=== PATIENT | male | born 1975 | race Caucasian/White ===

== ENCOUNTER 2020-03-18 10:15 | Emergency (ER) | payer MEDICAID ==
[~2020-03-18] VITALS: Ht 177.8 cm; Wt 77.1 kg
[2020-03-18 10:15] VITALS: BP_SYST 135
[2020-03-18 11:22] LABS: BASOPHILS % (AUTO) 0.1 % (0.0-2.0); EOSINOPHILS # (AUTO) 0.1 K/uL (0.0-0.4); EOSINOPHILS % (AUTO) 0.6 % (0.0-4.0); HEMATOCRIT 44.5 % (36-54); HEMOGLOBIN 14.8 g/dL (14.0-18.0); LYMPHOCYTES # (AUTO) 1.6 K/uL (1.0-5.5); MEAN CORPUSCULAR HEMOGLOBIN 31 pg (27-31); MEAN CORPUSCULAR HGB CONC 33 % (32-36); MEAN CORPUSCULAR VOLUME 93 fL (79.0-98.0); MONOCYTES # (AUTO) 0.8 K/uL (0.0-1.0); NEUTROPHILS # (AUTO) 7.4 K/uL (1.8-7.7); NEUTROPHILS % (AUTO) 75.3 % (40.0-70.0); PLATELET COUNT (AUTO) 107 K/uL (130-430); RED BLOOD CELL COUNT(AUTO) 4.79 MIL/uL (4.2-6.2); RED CELL DISTRIBUTION WIDTH 19.4 % (9.0-15.0); WHITE BLOOD COUNT (AUTO) 9.8 K/uL (4.8-10.8)
[2020-03-18 11:29] LABS: POTASSIUM 3.4 mmol/L (3.5-5.1)
[2020-03-18 11:40] LABS: ALBUMIN 3.7 g/dL (3.4-4.8); CALCIUM 8.8 mg/dL (8.4-11.0); CREATININE 0.74 mg/dL (0.55-1.30); FREE T4 (FREE THYROXINE) 0.9 ng/dl (0.8-1.5); INR 0.9 (0.80-1.20); PROTHROMBIN TIME 9.4 SECS (9.5-12.5); TOTAL BILIRUBIN 0.5 mg/dL (0.0-1.0)
[2020-03-18] MEDS ORDERED: NACL 0.9% 2,000 ML IV ONE (11:45)
[2020-03-18 12:39] LABS: BILIRUBIN,URINE NEGATIVE (NEGATIVE); BLOOD, URINE NEGATIVE (NEGATIVE); CLARITY/URINE CLEAR (CLEAR); COLOR,URINE YELLOW (YELLOW); GLUCOSE,URINE NEGATIVE (NEGATIVE); KETONES,URINE 2+ (NEGATIVE); LEUKOCYTE ESTERASE ,URINE TRACE (NEGATIVE); NITRITE, URINE NEGATIVE (NEGATIVE); PH,URINE 6.5 (5.0-8.0); PROTEIN URINE 1+ (NEGATIVE)
[2020-03-18 12:54] LABS: RBC,URINE 0-3 /HPF (0-3)
[2020-03-18 12:55] LABS: BACTERIA,URINE None Seen /HPF (None Seen)
[2020-03-18 12:59] LABS: BARBITURATE, URINE NEGATIVE (NEG <=200); BENZODIAZEPINE, URINE POSITIVE (NEG <=150); CANNABINOID, URINE NEGATIVE (NEG <=50); COCAINE, URINE NEGATIVE (NEG <=150); METHAMPHETAMINES SCREEN,URINE NEGATIVE (NEG <=500); OPIATE, URINE NEGATIVE (NEG <=100); PHENCYCLIDINE SCREEN,URINE NEGATIVE (NEG <=25); UR TRICYCLIC ANTIDEPRESSANTS NEGATIVE (NEG <=300); URINE AMPHETAMINE NEGATIVE (NEG <=500); URINE METHADONE NEGATIVE (NEG <=200); URINE OXYCODONE SCREEN NEGATIVE (NEG <=100); URINE PROPOXYPHENE SCREEN NEGATIVE (NEG <=300)
[2020-03-18 16:52] VITALS: BP_SYST 142
== END 2020-03-18 16:52 | disposition home or self-care (01) ==
LOC: SED 10:15
DX: F10.129 Alcohol abuse with intoxication, unspecified (principal); Y90.8 Blood alcohol level of 240 mg/100 ml or more
CPT/HCPCS: 36415; 80053; 80307; 81000; 82140; 83605; 83880; 84439; 84484; 85025; 85610; 87040; 93005; 96360; 96361; 99284; G0482; J7030

== ENCOUNTER 2021-11-22 21:14 | Inpatient (IN) | payer OTHER, MEDICAID ==
[~2021-11-22] VITALS: Ht 177.8 cm; Wt 74.8 kg
[2021-11-22 21:18] VITALS: BP_SYST 132
[2021-11-22] MEDS ORDERED: cloNIDine HCL 0.1 MG TABLET PO ONE (22:00)
[2021-11-22] MEDS ORDERED: NOR10 PO (22:04)
[2021-11-22] MEDS ORDERED: LOSA25TA3 PO (22:05)
[2021-11-22] MEDS ORDERED: NITROGLYCERIN 0.4 MG TAB.SUBL SL ONE (22:15)
[2021-11-22] MEDS ORDERED: ASPIRIN 325 MG TABLET (ECOTRIN) PO ONE (22:15)
[2021-11-22 22:23] LABS: ANION GAP 15 (5-15); CALCIUM 10.1 mg/dL (8.4-11.0); CHLORIDE 97 mmol/L (98-107); CREATININE 0.78 mg/dL (0.55-1.30); GLUCOSE 87 mg/dL (70-99); POTASSIUM 3.4 mmol/L (3.5-5.1); SODIUM SERUM 135 mmol/L (136-145); UREA NITROGEN, BLOOD 10 mg/dL (8-21)
[2021-11-22 22:25] LABS: BASOPHILS % (AUTO) 0.4 % (0.0-2.0); EOSINOPHILS % (AUTO) 0.3 % (0.0-4.0); HEMATOCRIT 39.9 % (36-54); HEMOGLOBIN 13.6 g/dL (14.0-18.0); LYMPHOCYTES # (AUTO) 0.8 K/uL (1.0-5.5); LYMPHOCYTES % (AUTO) 19.6 % (20.5-51.5); MEAN CORPUSCULAR HEMOGLOBIN 35 pg (27-31); MEAN CORPUSCULAR HGB CONC 34 % (32-36); MEAN CORPUSCULAR VOLUME 103 fL (79.0-98.0); MONOCYTES # (AUTO) 0.4 K/uL (0.0-1.0); MONOCYTES % (AUTO) 8.9 % (1.7-9.3); NEUTROPHILS % (AUTO) 70.8 % (40.0-70.0); PLATELET COUNT (AUTO) 124 K/uL (130-430); RED BLOOD CELL COUNT(AUTO) 3.87 MIL/uL (4.2-6.2); WHITE BLOOD COUNT (AUTO) 4.3 K/uL (4.8-10.8)
[2021-11-22] MEDS ORDERED: chlordiazePOXIDE HCL 25 MG CAPSULE PO ONE (22:30)
[2021-11-22] MEDS ORDERED: NACL 0.9% 1,000 ML IV ONE (22:30)
[2021-11-22] MEDS ORDERED: LORazepam 2 MG/ML VIAL IVP ONE (22:30)
[2021-11-22] MEDS ORDERED: KETOROLAC TROMETHAMINE 30 MG VIAL IVP ONE (22:30)
[2021-11-22] MEDS ORDERED: NITROGLYCERIN LINGUAL 400 mCg/SPRAY TL ONE (22:30)
[2021-11-22 22:31] LABS: ALANINE AMINOTRANSFERASE 31 U/L (12-78); ALBUMIN 3.9 g/dL (3.4-4.8); ASPARTATE AMINOTRANSFERASE 200 U/L (10-37); TOTAL BILIRUBIN 1.6 mg/dL (0.0-1.0)
[2021-11-22 22:32] LABS: GFR AFRICAN AMERICAN 137 mL/min (>90)
[2021-11-23] MEDS ORDERED: NITROGLYCERIN 0.4 MG TAB.SUBL SL PRN (04:15)
[2021-11-23] MEDS ORDERED: ASPIRIN 81 MG TAB.CHEW PO ONE (04:15)
[2021-11-23 07:28] VITALS: BP_SYST 151
[2021-11-23 08:00] VITALS: BP_SYST 151
[2021-11-23] MEDS ORDERED: ASPIRIN 81 MG TAB.CHEW PO SCH (09:00)
[2021-11-23 12:22] VITALS: BP_SYST 152
[2021-11-23] MEDS ORDERED: LOSARTAN POTASSIUM 50 MG TABLET (COZAAR) PO SCH (14:15)
[2021-11-23] MEDS ORDERED: amLODIPine BESYLATE 10 MG TABLET PO SCH (14:15)
[2021-11-24] MEDS ORDERED: DOCUSATE SODIUM 100 MG CAPSULE PO SCH (09:00)
== END 2021-11-23 15:05 | disposition left against medical advice (07) | DRG 392 ==
LOC: SED 21:14 → STU 11-23 04:10
PROVIDERS: ADMIT Family Medicine; ATTEND Family Medicine
DX: K21.9 Gastro-esophageal reflux disease without esophagitis (principal); K92.1 Melena; R07.9 Chest pain, unspecified; I10 Essential (primary) hypertension; F32.A Depression, unspecified; Z20.822 Contact with and (suspected) exposure to COVID-19; F10.20 Alcohol dependence, uncomplicated; D64.9 Anemia, unspecified; Y90.9 Presence of alcohol in blood, level not specified; Z79.899 Other long term (current) drug therapy
CPT/HCPCS: 36415; 71045; 76705; 80053; 84484; 85025; 93005; 96361; 96374; 96375; 99285; G0378; G0482; J1885; J2060